=== PATIENT | male | born 1955 | race Caucasian/White ===

== ENCOUNTER 2016-07-18 09:58 | Emergency (ER) | payer OTHER ==
[2016-07-18] MEDS ORDERED: HYDROCODONE/ACETAMINOPHEN 5/325MG TABLET ONE (10:45)
--- NOTE | 2016-07-18 11:16 | RAD ---
FOOT RIGHT 3 VIEWS COMPARISON: None HISTORY: On-the-job injury. The patient fell from a loading dock and landed on the right side. Right foot pain. FINDINGS: Views: Right foot dorsoplantar, medial oblique, lateral. Bones: Normal. Joints: Normal. Soft tissues: Normal. IMPRESSION: Normal study.
--- NOTE | 2016-07-18 11:17 | RAD ---
KNEE- RIGHT 4 OR MORE VIEWS COMPARISON: None. HISTORY: On-the-job injury. The patient fell from a loading dock and landed on right side. Right knee pain. VIEWS: Right knee AP, internal rotation, external rotation, and lateral FINDINGS: Bones: Normal mineralization. Normal alignment. Minimal degenerative osteophytes of the patella. Incidentally noted accessory ossicles of the lateral and posterior knee. Joints: Mild joint effusion. Soft tissue: Normal. IMPRESSION: Mild effusion in the right knee. Differential diagnosis includes internal derangement and arthritis.
--- NOTE | 2016-07-18 11:18 | RAD ---
LOWER LEG RIGHT COMPARISON: None. HISTORY: On-the-job injury. The patient fell from a loading dock and landed on his right side. FINDINGS: Views: AP and lateral right tibia fibula. Bones: Normal. Joints: Normal. Soft tissues: Normal. IMPRESSION: 1. Normal study.
--- NOTE | 2016-07-18 11:43 | RAD ---
RIGHT ANKLE 3 VIEWS HISTORY: Bilateral ankle pain and swelling. COMPARISONS: None. TECHNIQUE: Frontal, lateral, and oblique views of the right ankle. ALIGNMENT: Grossly unremarkable. Ankle mortise intact. FRACTURE: No displaced acute fracture. SOFT TISSUES: Anterolateral soft tissue swelling and joint effusion. CALCANEUS: Small to moderate plantar spur formation. RADIOOPAQUE FOREIGN BODY: None. IMPRESSION: No gross malalignment or displaced acute fracture noted. Anterolateral soft tissue swelling and joint effusion.
== END 2016-07-18 12:40 | disposition home or self-care (01) ==
LOC: ED 09:58
DX: M25.561 Pain in right knee (principal); I48.91 Unspecified atrial fibrillation; Z79.01 Long term (current) use of anticoagulants; W17.89XA Other fall from one level to another, initial encounter; Y93.9 Activity, unspecified; Y92.62 Dock or shipyard as the place of occurrence of the external cause; Y99.0 Civilian activity done for income or pay
CPT/HCPCS: 73610; 73630; 73564; 73590; 99283 ×2; A9270